=== PATIENT | female | born 1990 | race Caucasian/White ===

== ENCOUNTER 2024-03-07 08:19 | Outpatient (AMB) | payer OTHER, SELFPAY ==
--- NOTE | 2024-03-07 08:25 | MHC.PC.OV ---
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 Required: No Is last menstrual period known: Yes Last menstrual period: 02/16/24 Post menopausal: No Patient : No Allergies No Known Allergies Allergy (Verified 03/07/24 08:31) Tobacco use date assessed: 03/07/24 Dental Screening Dental Screen Date: 03/07/24 Did you have a dental visit in the last 12 months?: No Did you have a dental problem in the last 6 months where you did not have access to dental care?: No Was dental information given to patient?: Patient has dentist HPI HPI Comments History of Present Illness Details This is a 33-year-old female with a past medical history of menorrhagia, depression with anxiety, asthma and iron-deficiency [facility]. She is due for a physical exam. Elevated BP-history of white coat, and she drank an energy drink this morning. Her twin sister does have hypertension. Nonsmoker. She does not have a history of taking medication for hypertension. She has a cuff at home. She had a gastric sleeve in 2018 or 2019. She's had two children since then. She is interested in trying Wegovy. During the past 6 months she is going to the gym and walking. She follows a low carb diet. She has not been unable to lose weight. Cardiovascular disease runs in her family as well as diabetes. Her PHQ-9 is positive, but she says right now she is doing okay in terms of depression with anxiety. She does not feel like she needs to see a therapist. She is happy with her family life. No SI or HI. 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 She will schedule an eye exam and dental exam. ROS: Constitutional: No unexplained weight loss, fever, chills, fatigue or night sweats. Eyes: No vision changes, blurry vision, double vision, eye pain, eye redness, eye discharge. ENT: No hearing loss, sneezing, congestion, runny nose or sore throat. Respiratory: No shortness of breath, cough or sputum production. Cardiovascular: No chest pain, chest pressure or chest discomfort. No palpitations or pedal edema. Gastrointestinal: No anorexia, nausea, vomiting or diarrhea. No abdominal pain or blood in stool. Genitourinary: No dysuria, hematuria, urinary frequency. Neurologic: No headache, dizziness, syncope, unilateral weakness, ataxia, numbness or tingling in the extremities. Musculoskeletal: No muscle pain, back pain, joint pain or swelling. Hematologic/Lymphatics: No bleeding or bruising. No painful lymph nodes. Skin: No rash or itching. Endocrine: No cold or heat intolerance. No polyuria or polydipsia. Psychiatric: No SI/HI. Physical exam: Constitutional: Alert, in no distress. Eyes: Pupils are equal, round and reactive to light. Extraocular muscles intact. Ear, Nose and Throat: Waxy canals.. TMs normal. Normal nasal mucosa. No nasal discharge. No oral lesions. Neck: Supple, Full range of motion. No lymphadenopathy. No palpable thyroid masses. Respiratory: Clear to auscultation. Cardiovascular: S1 S2 regular. No murmurs. Gastrointestinal: Abdomen soft, non-tender, non-distended. Normal bowel sounds. No palpable masses. Neurologic: No focal neurological deficits. Skin: No rashes. Musculoskeletal: No gross deformities. Normal range of motion. Extremities: Warm and well perfused. No clubbing, cyanosis or edema. Psychiatric: Normal mood and affect [facility] Medical History (Updated 03/07/24 @ 13:08 by FATOUMATA Hanna) Elevated blood pressure reading Class 2 obesity with body mass index (BMI) of 37.0 to 37.9 in adult Menorrhagia Depression with anxiety Mild intermittent asthma in adult without complication History of iron deficiency Surgical History (Updated 03/07/24 @ 09:02 by FATOUMATA Hanna) History of wisdom tooth extraction History of tonsillectomy and adenoidectomy History of cholecystectomy History of appendectomy History of sleeve gastrectomy Family History (Updated 03/07/24 @ 09:33 by Alison Mejia) Father Alcohol abuse Type 2 diabetes mellitus Cancer Heart disease High blood pressure High cholesterol Cardiovascular disease Clotting disorder Mother Alcohol abuse Type 2 diabetes mellitus Sister Asthma High blood pressure Maternal Grandmother Type 2 diabetes mellitus Maternal Grandfather Cancer Social History (Updated 03/07/24 @ 08:37 by Alison Mejia) Housing: House Patient Tobacco Use Status: Never used Tobacco e-Cigarette/Vaping Use: Never Used Second Hand Smoke Exposure: No Substance Use Type: Marijuana service: No Current occupational status: employed 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 1. Little interest or pleasure in doing things: more than half the days 2. Feeling down, depressed, or hopeless: more than half the days 3. Trouble falling or staying asleep, or sleeping too much: several days 4. Feeling tired or having little energy: nearly every day 5. Poor appetite or overeating: not at all 6. Feeling bad about yourself - or that you are a failure or have let yourself or your family down: more than half the days 7. Trouble concentrating on things, such as reading the newspaper or watching television: more than half the days 8. Moving or speaking so slowly that other people could have noticed. Or the opposite - being so fidgety or restless that you have been moving around a lot more than usual: not at all 9. Thoughts that you would be better off or of hurting yourself in some way: not at all Total score: 12 Depression Screening Interpretation: Positive Depression Screening Follow-up: Declines treatment Depression Screening Done: Yes 58090 - PHQ-9 Billing: Yes Source: Developed by Drs. Christian Laughlin, Danielle Sanders, Carloz Cuevas and colleagues, with an educational tom from [employer]. Thrive Questionnaire Date Thrive assessed: 03/07/24 I am a: Patient What is your living situation today?: I have a steady place to live Within the past 12 months, did the food you bought not last and you didn't have the money to get more?: Never true Within the past 12 months, did you worry whether your food would run out before you got money to buy more?: Never true Do you have trouble paying for medicines?: No Do you have trouble getting transportation to medical appointments?: No Do you have trouble paying your heating and electricity bill?: No Do you have trouble taking care of your child, family member or friend?: No Do you have trouble with day-to-day activities such as bathing, preparing meals, shopping, managing finances, etc.?: No Are you currently unemployed and looking for a job?: No Are you interested in more education?: No Please select the resources that you would like help with: None Currently or been in a relationship where the following occur: No concerns reported THRIVE Score: 0 AUDIT C Alcohol Use Questionnaire (AUDIT-C) 1. How often do you have a drink containing alcohol?: 2-3 times a week 2. How many drinks containing alcohol do you have on a typical day when you are drinking?: 1 or 2 3. How often do you have six or more drinks on one occasion?: Less than monthly Total Score: 4 ERICKSON-7 AMB Questionnaire ERICKSON-7 Date ERICKSON - 7 assessed: 03/07/24 Feeling nervous, anxious, or on edge: 1 = Several days Not being able to stop or control worryin = More than half the days Worrying too much about different things: 2 = More than half the days Trouble relaxin = Several days Being so restless that it is hard to sit still: 1 = Several days Becoming easily annoyed or irritable: 2 = More than half the days Feeling afraid as if something awful might happen: 1 = Several days Total ERICKSON-7 score (0-4 normal; 5-9 mild; 10-14 moderate; 15-21 severe): 10 Source: Developed by Drs. Christian Laughlin, Danielle Sanders, Carloz Cuevas and colleagues, with an educational tom from [employer]. ERICKSON-7 Assessment Billing ERICKSON-7 Assessment Tool: ERICKSON-7 Assessment 17423 ACT Questionnaire In the past 4 weeks, how much of the time did your asthma keep you from getting as much done at work, school or at home?: None of the time During the past 4 weeks, how often have you had shortness of breath?: Not at all During the past 4 weeks, how often did your asthma symptoms wake you up at night or earlier than usual in the morning?: Not at all During the past 4 weeks, how often have you had to use your rescue inhaler or nebulizer medication?: Not at all How would you rate your asthma control during the past 4 weeks?: Completely controlled Score: 25 Physical exam (Primary Care) Vital Signs: Last Vital Signs Temp 98.0 F 03/07/24 08:41 Pulse 83 03/07/24 08:41 Resp 16 03/07/24 08:41 BP 140/90 H 03/07/24 08:41 Pulse Ox 100 03/07/24 08:41 Oxygen Delivery Method Room Air 03/07/24 08:41 BMI result Body Mass Index 37.9 Tobacco/Smoking Status: Tobacco use Status Tobacco use date assessed 03/07/24 03/07/24 08:38 Patient Tobacco Use Status Never used Tobacco 03/07/24 08:38 e-Cigarette/Vaping Use Never Used 03/07/24 08:38 PHQ-9: PHQ-9 Score PHQ-9: Total score 12 03/07/24 10:13 Depression Screening Interpretation: Positive Depression Screening Follow-up: Declines treatment Thrive Assessment: Date of Thrive Assessment Date Thrive assessed 03/07/24 03/07/24 08:45 Currently or been in a relationship where the following occur: No concerns reported Assessment and Plan Assessment & Plan (1) Encounter for routine history and physical examination: Code(s): Z00.00 - Encounter for general adult medical examination without abnormal findings (2) Screening for cardiovascular condition: Code(s): Z13.6 - Encounter for screening for cardiovascular disorders (3) Class 2 obesity with body mass index (BMI) of 37.0 to 37.9 in adult: Code(s): E66.9 - Obesity, unspecified; Z68.37 - Body mass index [BMI] 37.0-37.9, adult Qualifiers: Obesity type: due to excess calories Serious obesity comorbidity presence: without serious comorbidity Qualified Code(s): E66.09 - Other obesity due to excess calories; Z68.37 - Body mass index [BMI] 37.0-37.9, adult (4) Elevated blood pressure reading: Code(s): R03.0 - Elevated blood-pressure reading, without diagnosis of hypertension Plan Patient is seen today for a routine physical. 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 Continue lifestyle modifications. The patient denies contraindications to GLP-1 receptor agonist. We reviewed the FDA preliminary evaluation that has not found evidence that these medications cause suicidal thoughts or actions, but the investigation is ongoing. If the patient develops these symptoms they will stop taking the medication immediately and contact the office. We reviewed more common side effects such as bloating, constipation, nausea and vomiting. We reviewed the administration and dosing schedule. The patient is instructed to continue lifestyle modifications and efforts at weight loss. We discussed how weight loss can cause physiologic changes in the body and that some patients may experience hair thinning/hair loss. We also discussed that the medications are frequently backordered which may result in a delayed start or disruption when taking the medication. The patient understands it is their responsibility to contact alternative pharmacies if the medication is not available at their usual pharmacy. The patient is also made aware that insurance may deny coverage for the medication despite prior authorization. Elevated blood pressure She will check home readings and bring them to her follow up appointment to review. Recommended low-sodium diet and avoidance of caffeine. Follow up in 8 weeks. Orders: Orders Lipid Panel Today F41.8 - Other specified anxiety disorders, J45.20 - Mild intermittent asthma, uncomplicated, Z00.00 - Encounter for general adult medical examination without abnormal findings, Z13.6 - Encounter for screening for cardiovascular disorders, Z86.39 - Personal history of other endocrine, nutritional and metabolic disease Complete Blood Count no Diff Today F41.8 - Other specified anxiety disorders, J45.20 - Mild intermittent asthma, uncomplicated, Z00.00 - Encounter for general adult medical examination without abnormal findings, Z13.6 - Encounter for screening for cardiovascular disorders, Z86.39 - Personal history of other endocrine, nutritional and metabolic disease IRON PROFILE Today Z86.39 - Personal history of other endocrine, nutritional and metabolic disease Comprehensive Met. Panel Today F41.8 - Other specified anxiety disorders, J45.20 - Mild intermittent asthma, uncomplicated, Z00.00 - Encounter for general adult medical examination without abnormal findings, Z13.6 - Encounter for screening for cardiovascular disorders, Z86.39 - Personal history of other endocrine, nutritional and metabolic disease TSH reflex Free T4 Today E66.9 - Obesity, unspecified, F41.8 - Other specified anxiety disorders, J45.20 - Mild intermittent asthma, uncomplicated, Z00.00 - Encounter for general adult medical examination without abnormal findings, Z13.6 - Encounter for screening for cardiovascular disorders, Z86.39 - Personal history of other endocrine, nutritional and metabolic disease Medications: New albuterol sulfate 90 mcg/actuation (Ventolin HFA) 2 inhalations inhalation Q4H PRN 8.5 grams 3RF shortness of breath or wheezing semaglutide (weight loss) (Wegovy) 0.25 mg (0.5 mL) subcut Q7D 2 mL 0RF Coding Level of Care Code New Pt Prev Care 18-39yr([id number] Diagnoses Encounter for routine history and physical examination Z00.00 Screening for cardiovascular condition Z13.6 Class 2 obesity due to excess calories without serious comorbidity with body mass index (BMI) of 37.0 to 37.9 in adult E66.09; Z68.37 Obesity type: due to excess calories Serious obesity comorbidity presence: without serious comorbidity Elevated blood pressure reading R03.0 Additional Codes ERICKSON-7 Assessment Billing - ERICKSON-7 Assessment Tool: ERICKSON-7 Assessment [id number] ([id number])
[2024-03-07 08:41] VITALS: BP 140/90; PULSE 83; RESP 16; TEMP 36.7; O2SAT 100; BMI 37.9
== END 2024-03-07 09:19 | disposition home or self-care (01) ==
PROVIDERS: PCP Physician Assistant Medical; Visit Provider Physician Assistant Medical
DX: Z00.00 Encounter for general adult medical examination without abnormal findings (principal); Z13.6 Encounter for screening for cardiovascular disorders; E66.09 Other obesity due to excess calories; Z68.37 Body mass index [BMI] 37.0-37.9, adult; R03.0 Elevated blood-pressure reading, without diagnosis of hypertension
CPT/HCPCS: 99385

== ENCOUNTER 2024-03-07 09:29 | Outpatient (REF) | payer OTHER, SELFPAY ==
[2024-03-07 11:32] LABS: Hemoglobin 12.7 g/dl (12.0-16.0); Mean Corpuscular HGB Conc 33.4 g/dl (31.0-35.0); Mean Corpuscular Hemoglobin 29.1 pg (27.0-33.0); Mean Platelet Volume 10.6 fL (9.4-12.3); Platelet Count 264 X10*3/uL (160-400); Red Blood Count 4.37 X10*6/uL (4.20-5.50); Red Cell Distribution Width 12.2 % (11.0-16.0); White Blood Count 7.4 X10*3/uL (4.8-10.8)
[2024-03-07 12:04] LABS: Alanine Aminotransferase 45 U/L (0-31); Albumin Level 4.2 g/dL (3.5-5.0); Alkaline Phosphatase 58 U/L (39-117); Anion Gap 12 (12-20); Aspartate Amino Transferase 41 U/L (5-31); Bilirubin Total 0.7 mg/dL (0.0-1.0); Blood Urea Nitrogen 10 mg/dL (9-16); Calcium 9.9 mg/dL (8.4-10.2); Carbon Dioxide 28 mmol/L (22-29); Chloride 103 mmol/L (96-108); Cholesterol 163 mg/dL (<200); Estimated Glomerular Filt Rate > 60; Glucose Random 90 mg/dL (60-115); HDL Cholesterol 64 mg/dL (>40); Iron 66 mcg/dL (30-160); LDL Cholesterol Calculated 81 mg/dL (<100); Percent Iron Saturation 15 % (15-50); Potassium 4.3 mmol/L (3.3-5.1); Sodium 139 mmol/L (135-145); Total Iron Binding Capacity 433 mcg/dL (228-428); Total Protein 7.2 g/dL (6.5-8.0); Triglycerides 90 mg/dL (<150); Unsaturated Iron Binding 367 ug/dL
[2024-03-07 12:05] LABS: TSH reflex Free T4 2.65 uIU/mL (0.32-4.0)
== END 2024-03-07 09:30 | disposition home or self-care (01) ==
LOC: HO.WFDLDS 09:29
PROVIDERS: Visit Provider Physician Assistant Medical
DX: Z00.00 Encounter for general adult medical examination without abnormal findings (principal); Z13.6 Encounter for screening for cardiovascular disorders; Z86.39 Personal history of other endocrine, nutritional and metabolic disease; J45.20 Mild intermittent asthma, uncomplicated; F41.8 Other specified anxiety disorders; E66.9 Obesity, unspecified
CPT/HCPCS: 36415; 80053; 80061; 83540; 84443; 85027